=== PATIENT | male | born 1955 | race Caucasian/White ===

== ENCOUNTER 2016-06-10 00:36 | Inpatient (IN) | payer MEDICARE ==
[~2016-06-10 00:36] MED LIST: ACCUPRIL5 M1 PO; ASPIRIN EC325 M1 PO; LOVASTATIN40 M2 PO; NORCO 5-325 TA1 EACH PO; OMEPRAZOLE20 M3 PO; TENORMIN50 M1 PO
[2016-06-10 04:47] LABS: BASO % 0.1 % (0-2); EOS % 0.1 % (0-7); HGB-HEMOGLOBIN 11.4 gm/dl (13.5-17.0); IMMATURE GRANULOCYTES ABSOLUTE 0.11 tho/cmm (0-0.03); IMMATURE GRANULOCYTES PERCENT 0.6 % (0-0.3); LYMPH % 11.8 % (20-45); MCH (MEAN CORPUSCULAR HGB) 28.4 pg (28.0-32.0); MCHC MEAN CORPUSCULAR HGB CONC 33.5 % (32.0-36.0); MCV (MEAN CELL VOLUME) 84.6 fl (82.0-96.0); MONO % 7.2 % (0-12); MONOCYTE ABSOLUTE COUNT 1.2 tho/cmm (0.0-1.2); NEUTROPHIL ABSOLUTE COUNT 13.8 tho/cmm (1.6-8.0); NEUTROPHIL-AUTOMATED 13.8 tho/cmm (1.6-8.0); NEUTROPHILS % 80.2 % (40-80); PLATELET COUNT 434 tho/cmm (150-450); RED BLOOD COUNT 4.02 mil/cmm (4.40-5.70); WHITE BLOOD COUNT 17.2 tho/cmm (4.0-10.0)
[2016-06-10 05:24] LABS: ANION GAP 15 mmol/L (0-20); BLOOD UREA NITROGEN 13 mg/dl (6-24); CALCIUM 7.3 mg/dl (8.5-10.5); CARBON DIOXIDE-VENOUS 21 mmol/L (22-32); CHLORIDE 106 mmol/l (96-110); CREATININE 1.02 mg/dl (0.60-1.30); GLUCOSE 117 mg/dL (70-110); MAGNESIUM 1.2 mg/dl (1.3-2.6); POTASSIUM 3.5 mmol/L (3.7-5.1); SODIUM 138 mmol/L (135-145); eGFR VALUE FOR BLACK >90 mL/Min
[2016-06-11 00:59] LABS: INR 1.5 INR (0.9-1.1); PROTHROMBIN TIME 17.3 SECONDS (9.0-13.6)
[2016-06-11 01:00] LABS: URINE APPEARANCE CLEAR; URINE BILIRUBIN NEGATIVE (NEG); URINE BLOOD MODERATE (NEG); URINE COLOR YELLOW; URINE GLUCOSE (UA) NEGATIVE (NEG); URINE KETONE NEGATIVE (NEG); URINE LEUKOCYTE ESTERASE NEGATIVE (NEG); URINE NITRITE NEGATIVE (NEG); URINE PROTEIN MODERATE (NEG)
[2016-06-11 01:04] LABS: URINE AMORPHOUS 1+
[2016-06-11 01:05] LABS: URINE OTHER VOLUME 3 ML
[2016-06-11 01:21] LABS: PROCALCITONIN 1.21 ng/ml (0.05-0.09)
[2016-06-11 06:16] LABS: BASO % 0.2 % (0-2); EOS % 0.2 % (0-7); HCT-HEMATOCRIT 30.3 % (36.0-53.5); HGB-HEMOGLOBIN 10.2 gm/dl (13.5-17.0); IMMATURE GRANULOCYTES ABSOLUTE 0.07 tho/cmm (0-0.03); IMMATURE GRANULOCYTES PERCENT 0.5 % (0-0.3); LYMPH % 17.2 % (20-45); LYMPH ABSOLUTE COUNT 2.3 tho/cmm (0.8-4.5); MCH (MEAN CORPUSCULAR HGB) 28.4 pg (28.0-32.0); MCHC MEAN CORPUSCULAR HGB CONC 33.7 % (32.0-36.0); MCV (MEAN CELL VOLUME) 84.4 fl (82.0-96.0); MONO % 5.7 % (0-12); MONOCYTE ABSOLUTE COUNT 0.8 tho/cmm (0.0-1.2); NEUTROPHIL ABSOLUTE COUNT 10.1 tho/cmm (1.6-8.0); NEUTROPHIL-AUTOMATED 10.1 tho/cmm (1.6-8.0); NEUTROPHILS % 76.2 % (40-80); PLATELET COUNT 420 tho/cmm (150-450); RED BLOOD COUNT 3.59 mil/cmm (4.40-5.70); RED CELL DISTRIBUTION WIDTH 14.6 % (12.4-16.4); WHITE BLOOD COUNT 13.2 tho/cmm (4.0-10.0)
[2016-06-11 06:31] LABS: ANION GAP 12 mmol/L (0-20); BLOOD UREA NITROGEN 11 mg/dl (6-24); CALCIUM 6.9 mg/dl (8.5-10.5); CARBON DIOXIDE-VENOUS 22 mmol/L (22-32); CHLORIDE 109 mmol/l (96-110); GLUCOSE 92 mg/dL (70-110); POTASSIUM 3.1 mmol/L (3.7-5.1); SODIUM 140 mmol/L (135-145); eGFR VALUE FOR BLACK >90 mL/Min
[2016-06-12 04:38] LABS: BASO % 0.1 % (0-2); EOS % 1.5 % (0-7); EOSINOPHIL ABSOLUTE COUNT 0.2 tho/cmm (0.0-0.7); HCT-HEMATOCRIT 29.9 % (36.0-53.5); HGB-HEMOGLOBIN 9.9 gm/dl (13.5-17.0); IMMATURE GRANULOCYTES ABSOLUTE 0.15 tho/cmm (0-0.03); IMMATURE GRANULOCYTES PERCENT 1.1 % (0-0.3); LYMPH % 15.3 % (20-45); LYMPH ABSOLUTE COUNT 2.1 tho/cmm (0.8-4.5); MCH (MEAN CORPUSCULAR HGB) 28.2 pg (28.0-32.0); MCHC MEAN CORPUSCULAR HGB CONC 33.1 % (32.0-36.0); MCV (MEAN CELL VOLUME) 85.2 fl (82.0-96.0); MONO % 6.5 % (0-12); MONOCYTE ABSOLUTE COUNT 0.9 tho/cmm (0.0-1.2); NEUTROPHIL ABSOLUTE COUNT 10.2 tho/cmm (1.6-8.0); NEUTROPHIL-AUTOMATED 10.2 tho/cmm (1.6-8.0); NEUTROPHILS % 75.5 % (40-80); PLATELET COUNT 410 tho/cmm (150-450); RED BLOOD COUNT 3.51 mil/cmm (4.40-5.70); RED CELL DISTRIBUTION WIDTH 14.8 % (12.4-16.4); WHITE BLOOD COUNT 13.6 tho/cmm (4.0-10.0)
[2016-06-12 04:51] LABS: ANION GAP 12 mmol/L (0-20); BLOOD UREA NITROGEN 14 mg/dl (6-24); CALCIUM 7.4 mg/dl (8.5-10.5); CARBON DIOXIDE-VENOUS 22 mmol/L (22-32); CHLORIDE 105 mmol/l (96-110); CREATININE 0.93 mg/dl (0.60-1.30); MAGNESIUM 1.8 mg/dl (1.3-2.6); POTASSIUM 3.2 mmol/L (3.7-5.1); SODIUM 136 mmol/L (135-145); eGFR VALUE FOR BLACK >90 mL/Min
[2016-06-12 04:57] LABS: GLUCOSE 69 mg/dL (70-110)
[2016-06-13 05:47] LABS: BASO % 0.3 % (0-2); EOS % 1.4 % (0-7); EOSINOPHIL ABSOLUTE COUNT 0.2 tho/cmm (0.0-0.7); HCT-HEMATOCRIT 29.9 % (36.0-53.5); IMMATURE GRANULOCYTES ABSOLUTE 0.19 tho/cmm (0-0.03); IMMATURE GRANULOCYTES PERCENT 1.7 % (0-0.3); LYMPH % 21.7 % (20-45); LYMPH ABSOLUTE COUNT 2.4 tho/cmm (0.8-4.5); MCH (MEAN CORPUSCULAR HGB) 28.4 pg (28.0-32.0); MCHC MEAN CORPUSCULAR HGB CONC 33.4 % (32.0-36.0); MCV (MEAN CELL VOLUME) 84.9 fl (82.0-96.0); MEAN PLATELET VOLUME 8.8 cmc (9.4-12.4); MONO % 6.9 % (0-12); MONOCYTE ABSOLUTE COUNT 0.8 tho/cmm (0.0-1.2); NEUTROPHIL ABSOLUTE COUNT 7.6 tho/cmm (1.6-8.0); NEUTROPHIL-AUTOMATED 7.6 tho/cmm (1.6-8.0); PLATELET COUNT 498 tho/cmm (150-450); RED BLOOD COUNT 3.52 mil/cmm (4.40-5.70); RED CELL DISTRIBUTION WIDTH 15.1 % (12.4-16.4); WHITE BLOOD COUNT 11.1 tho/cmm (4.0-10.0)
[2016-06-13 06:04] LABS: ANION GAP 14 mmol/L (0-20); BLOOD UREA NITROGEN 12 mg/dl (6-24); CALCIUM 7.6 mg/dl (8.5-10.5); CARBON DIOXIDE-VENOUS 18 mmol/L (22-32); CHLORIDE 108 mmol/l (96-110); CREATININE 0.86 mg/dl (0.60-1.30); POTASSIUM 3.4 mmol/L (3.7-5.1); SODIUM 137 mmol/L (135-145); eGFR VALUE FOR BLACK >90 mL/Min
[2016-06-13 06:05] LABS: GLUCOSE 63 mg/dL (70-110)
--- NOTE | 2016-06-13 21:59 | NUR ---
VN ROUNDING-DID NOT ROUND PATIENT IS SLEEPING IN CHAIR.
[2016-06-14 05:35] LABS: BASO % 0.6 % (0-2); BASO ABSOLUTE COUNT 0.1 tho/cmm (0.0-0.2); EOS % 1.4 % (0-7); EOSINOPHIL ABSOLUTE COUNT 0.1 tho/cmm (0.0-0.7); HCT-HEMATOCRIT 30.2 % (36.0-53.5); HGB-HEMOGLOBIN 9.9 gm/dl (13.5-17.0); IMMATURE GRANULOCYTES ABSOLUTE 0.37 tho/cmm (0-0.03); IMMATURE GRANULOCYTES PERCENT 3.9 % (0-0.3); LYMPH % 28.9 % (20-45); LYMPH ABSOLUTE COUNT 2.8 tho/cmm (0.8-4.5); MCHC MEAN CORPUSCULAR HGB CONC 32.8 % (32.0-36.0); MCV (MEAN CELL VOLUME) 85.3 fl (82.0-96.0); MEAN PLATELET VOLUME 8.6 cmc (9.4-12.4); MONO % 8.9 % (0-12); MONOCYTE ABSOLUTE COUNT 0.9 tho/cmm (0.0-1.2); NEUTROPHIL ABSOLUTE COUNT 5.3 tho/cmm (1.6-8.0); NEUTROPHIL-AUTOMATED 5.3 tho/cmm (1.6-8.0); NEUTROPHILS % 56.3 % (40-80); PLATELET COUNT 502 tho/cmm (150-450); RED BLOOD COUNT 3.54 mil/cmm (4.40-5.70); RED CELL DISTRIBUTION WIDTH 15.1 % (12.4-16.4); WHITE BLOOD COUNT 9.5 tho/cmm (4.0-10.0)
[2016-06-14 05:51] LABS: ANION GAP 14 mmol/L (0-20); BLOOD UREA NITROGEN 8 mg/dl (6-24); CALCIUM 7.6 mg/dl (8.5-10.5); CARBON DIOXIDE-VENOUS 21 mmol/L (22-32); CHLORIDE 108 mmol/l (96-110); CREATININE 0.79 mg/dl (0.60-1.30); GLUCOSE 76 mg/dL (70-110); POTASSIUM 3.4 mmol/L (3.7-5.1); SODIUM 140 mmol/L (135-145); eGFR VALUE FOR BLACK >90 mL/Min
--- NOTE | 2016-06-14 11:33 | NUR ---
VIRTUAL CARE NOTE: PT SITTING ON CHAIR HAVING LUNCH, STATES DOING GOOD, DENIES ANY CONCERNS. PLAN OF CARES REINFORCED, ENCOURAGE AMBULATION. WILL CHECK WITH SURGEON TO ADVANCE DIET TODAY, PT TOLERATES CLEAR LIQUID WELL.
--- NOTE | 2016-06-14 14:36 | NUR ---
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
--- NOTE | 2016-06-14 20:51 | NUR ---
BRANDEN ROUNDING-PATIENT SITTING UP IN CHAIR STATING PAIN IS CONTROLLED MOST OF THE TIME, HE IS TRYING TO CUT BACK ON USING MANY PAIN PILLS BUT THE STAFF IS DOING WHAT THEY NEED TO HELP HIM. PATIENT STATES HE IS FEELING BETTER AND TRYING TO GET THE SWELLING DOWN IN HIS LEGS. I ASKED IF THE WOUND VAC WAS STILL BEEPING AND HE SAID NO THAT COLIN HAD COME IN AND FIXED IT AND HE THINKS SHE IS AN AWESOME NURSE. NO FURTHER QUESTIONS OR CONCERNS AT THIS TIME
[2016-06-15 06:10] LABS: HCT-HEMATOCRIT 29.1 % (36.0-53.5); HGB-HEMOGLOBIN 9.6 gm/dl (13.5-17.0); MCH (MEAN CORPUSCULAR HGB) 28.3 pg (28.0-32.0); MCV (MEAN CELL VOLUME) 85.8 fl (82.0-96.0); MEAN PLATELET VOLUME 8.6 cmc (9.4-12.4); NEUTROPHIL-AUTOMATED 5.2 tho/cmm (1.6-8.0); PLATELET COUNT 483 tho/cmm (150-450); RED BLOOD COUNT 3.39 mil/cmm (4.40-5.70); RED CELL DISTRIBUTION WIDTH 15.3 % (12.4-16.4); WHITE BLOOD COUNT 9.7 tho/cmm (4.0-10.0)
[2016-06-15 06:17] LABS: BASO % 0.4 % (0-2); EOS % 1.7 % (0-7); EOSINOPHIL ABSOLUTE COUNT 0.2 tho/cmm (0.0-0.7); IMMATURE GRANULOCYTES PERCENT 5.1 % (0-0.3); LYMPH % 30.5 % (20-45); MONOCYTE ABSOLUTE COUNT 0.9 tho/cmm (0.0-1.2); NEUTROPHIL ABSOLUTE COUNT 5.2 tho/cmm (1.6-8.0); NEUTROPHILS % 53.3 % (40-80)
[2016-06-15 06:23] LABS: ANION GAP 12 mmol/L (0-20); BLOOD UREA NITROGEN 5 mg/dl (6-24); CALCIUM 7.7 mg/dl (8.5-10.5); CARBON DIOXIDE-VENOUS 25 mmol/L (22-32); CHLORIDE 107 mmol/l (96-110); CREATININE 0.78 mg/dl (0.60-1.30); GLUCOSE 108 mg/dL (70-110); POTASSIUM 3.4 mmol/L (3.7-5.1); SODIUM 141 mmol/L (135-145); eGFR VALUE FOR BLACK >90 mL/Min
[2016-06-16 06:47] LABS: ANION GAP 15 mmol/L (0-20); BLOOD UREA NITROGEN 7 mg/dl (6-24); CALCIUM 7.7 mg/dl (8.5-10.5); CARBON DIOXIDE-VENOUS 25 mmol/L (22-32); CHLORIDE 105 mmol/l (96-110); CREATININE 0.91 mg/dl (0.60-1.30); GLUCOSE 105 mg/dL (70-110); POTASSIUM 3.7 mmol/L (3.7-5.1); SODIUM 141 mmol/L (135-145); eGFR VALUE FOR BLACK >90 mL/Min
[2016-06-17 05:59] LABS: HCT-HEMATOCRIT 31.5 % (36.0-53.5); HGB-HEMOGLOBIN 10.1 gm/dl (13.5-17.0); MCHC MEAN CORPUSCULAR HGB CONC 32.1 % (32.0-36.0); MCV (MEAN CELL VOLUME) 87.3 fl (82.0-96.0); MEAN PLATELET VOLUME 8.6 cmc (9.4-12.4); NEUTROPHIL-AUTOMATED 4.5 tho/cmm (1.6-8.0); PLATELET COUNT 453 tho/cmm (150-450); RED BLOOD COUNT 3.61 mil/cmm (4.40-5.70); RED CELL DISTRIBUTION WIDTH 15.4 % (12.4-16.4); WHITE BLOOD COUNT 9.4 tho/cmm (4.0-10.0)
[2016-06-17 06:17] LABS: ANION GAP 12 mmol/L (0-20); BLOOD UREA NITROGEN 11 mg/dl (6-24); CALCIUM 8.1 mg/dl (8.5-10.5); CARBON DIOXIDE-VENOUS 28 mmol/L (22-32); CHLORIDE 104 mmol/l (96-110); GLUCOSE 88 mg/dL (70-110); POTASSIUM 4.1 mmol/L (3.7-5.1); SODIUM 140 mmol/L (135-145)
[2016-06-17 06:18] LABS: CREATININE 1.05 mg/dl (0.60-1.30); eGFR VALUE FOR BLACK 87 mL/Min
[2016-06-17 09:33] LABS: BAND % 6 % (0-20); BAND ABSOLUTE COUNT 0.6 tho/cmm (0-2.0); BASOPHIL % 1 % (0-2); BASOPHIL ABSOLUTE COUNT 0.1 tho/cmm (0.0-0.2); EOSINOPHIL % 1 % (0-7)
[2016-06-18] MEDS ORDERED: DIFLUCAN100 M1 PO (11:21)
[2016-06-18] MEDS ORDERED: LEVAQUIN750 M1 PO (11:26)
[2016-06-18] MEDS ORDERED: FLAGYL500 M1 PO (11:27)
--- NOTE | 2016-06-18 12:26 | NUR ---
VN DISCHARGE TEACHING-EDUCATED PATIENT ON HIS DISCHARGE INSTRUCTIONS, BURN OUTPT VISITS FOR THE WOUND VAC CHANGES,FOLLOWUP APPT AND NEW MEDICATIONS. PATIENT UNDERSTOOD EVERYTHING AND HAD NO FURTHER QUESTIONS OR CONCERNS.
== END 2016-06-18 16:03 | DRG 856 ==
LOC: PCUB 00:36 → PACU 17:48 → PCUB 18:40 → 5WD 06-12 18:40
PROVIDERS: Family Medicine; Hospitalist; Internal Medicine; Surgery; ADMIT Hospitalist
PROC: 0WPF0JZ Removal of Synthetic Substitute from Abdominal Wall, Open Approach (ICD-10-PCS; principal; 2016-06-10)
PROC: 0DQ80ZZ Repair Small Intestine, Open Approach (ICD-10-PCS; 2016-06-10)
PROC: 0WUF0JZ Supplement Abdominal Wall with Synthetic Substitute, Open Approach (ICD-10-PCS; 2016-06-10)
PROC: 0JB80ZZ Excision of Abdomen Subcutaneous Tissue and Fascia, Open Approach (ICD-10-PCS; 2016-06-10)
DX: T81.4XXA Infection following a procedure, initial encounter (principal); R65.20 Severe sepsis without septic shock; K63.1 Perforation of intestine (nontraumatic); T85.79XA Infection and inflammatory reaction due to other internal prosthetic devices, implants and grafts, initial encounter; E87.1 Hypo-osmolality and hyponatremia; D62 Acute posthemorrhagic anemia; Z68.41 Body mass index [BMI] 40.0-44.9, adult; L02.211 Cutaneous abscess of abdominal wall; L03.311 Cellulitis of abdominal wall; E66.01 Morbid (severe) obesity due to excess calories; E87.70 Fluid overload, unspecified; I73.9 Peripheral vascular disease, unspecified; I25.10 Atherosclerotic heart disease of native coronary artery without angina pectoris; D47.3 Essential (hemorrhagic) thrombocythemia; I10 Essential (primary) hypertension; E78.5 Hyperlipidemia, unspecified; I25.2 Old myocardial infarction; Z87.891 Personal history of nicotine dependence; E87.6 Hypokalemia; R73.9 Hyperglycemia, unspecified; Z95.5 Presence of coronary angioplasty implant and graft
CPT/HCPCS: C1751; C9113; J0131; J1450; J1650; J1940; J2175; J2270; J2543; J3370; J3475; J3480; J7030; J7050; Q9967

== ENCOUNTER 2016-06-23 13:00 | Inpatient (IN) | payer MEDICARE ==
[~2016-06-23 13:00] MED LIST changes: +DIFLUCAN100 M1 PO; +FLAGYL500 M1 PO; +LEVAQUIN750 M1 PO
[2016-06-23 14:16] LABS: BASO % 0.2 % (0-2); EOS % 0.5 % (0-7); EOSINOPHIL ABSOLUTE COUNT 0.1 tho/cmm (0.0-0.7); HCT-HEMATOCRIT 35.3 % (36.0-53.5); HGB-HEMOGLOBIN 11.6 gm/dl (13.5-17.0); IMMATURE GRANULOCYTES ABSOLUTE 0.06 tho/cmm (0-0.03); IMMATURE GRANULOCYTES PERCENT 0.4 % (0-0.3); LYMPH % 24.9 % (20-45); LYMPH ABSOLUTE COUNT 3.6 tho/cmm (0.8-4.5); MCH (MEAN CORPUSCULAR HGB) 28.6 pg (28.0-32.0); MCHC MEAN CORPUSCULAR HGB CONC 32.9 % (32.0-36.0); MCV (MEAN CELL VOLUME) 86.9 fl (82.0-96.0); MEAN PLATELET VOLUME 8.8 cmc (9.4-12.4); MONOCYTE ABSOLUTE COUNT 1.8 tho/cmm (0.0-1.2); PLATELET COUNT 414 tho/cmm (150-450); RED BLOOD COUNT 4.06 mil/cmm (4.40-5.70); RED CELL DISTRIBUTION WIDTH 15.3 % (12.4-16.4); WHITE BLOOD COUNT 14.6 tho/cmm (4.0-10.0)
[2016-06-23 14:29] LABS: ANION GAP 13 mmol/L (0-20); BLOOD UREA NITROGEN 12 mg/dl (6-24); CALCIUM 8.3 mg/dl (8.5-10.5); CARBON DIOXIDE-VENOUS 26 mmol/L (22-32); CHLORIDE 107 mmol/l (96-110); CREATININE 1.03 mg/dl (0.60-1.30); GLUCOSE 101 mg/dL (70-110); SODIUM 142 mmol/L (135-145); eGFR VALUE FOR BLACK 89 mL/Min
[2016-06-23 19:31] LABS: INR 1.2 INR (0.9-1.1); PROTHROMBIN TIME 14.4 SECONDS (9.0-13.6)
[2016-06-24 05:14] LABS: BASO % 0.1 % (0-2); EOS % 0.7 % (0-7); EOSINOPHIL ABSOLUTE COUNT 0.1 tho/cmm (0.0-0.7); HGB-HEMOGLOBIN 10.6 gm/dl (13.5-17.0); IMMATURE GRANULOCYTES ABSOLUTE 0.05 tho/cmm (0-0.03); IMMATURE GRANULOCYTES PERCENT 0.5 % (0-0.3); LYMPH % 29.7 % (20-45); LYMPH ABSOLUTE COUNT 3.2 tho/cmm (0.8-4.5); MCHC MEAN CORPUSCULAR HGB CONC 32.1 % (32.0-36.0); MCV (MEAN CELL VOLUME) 87.1 fl (82.0-96.0); MONO % 12.8 % (0-12); MONOCYTE ABSOLUTE COUNT 1.4 tho/cmm (0.0-1.2); NEUTROPHILS % 56.2 % (40-80); PLATELET COUNT 401 tho/cmm (150-450); RED BLOOD COUNT 3.79 mil/cmm (4.40-5.70); RED CELL DISTRIBUTION WIDTH 15.4 % (12.4-16.4); WHITE BLOOD COUNT 10.7 tho/cmm (4.0-10.0)
[2016-06-24 05:35] LABS: ALB/GLOB RATIO 0.5 (0.8-2.0); ALBUMIN 2.1 g/dl (3.5-5.0); ALKALINE PHOSPHATASE 53 U/L (33-138); ALT/SGPT 16 U/L (12-78); ANION GAP 12 mmol/L (0-20); AST/SGOT 20 U/L (10-40); BILIRUBIN,TOTAL 0.3 mg/dl (0.0-1.5); BLOOD UREA NITROGEN 8 mg/dl (6-24); CALCIUM 8.3 mg/dl (8.5-10.5); CARBON DIOXIDE-VENOUS 27 mmol/L (22-32); CHLORIDE 109 mmol/l (96-110); CREATININE 0.89 mg/dl (0.60-1.30); GLUCOSE 89 mg/dL (70-110); POTASSIUM 3.9 mmol/L (3.7-5.1); SODIUM 144 mmol/L (135-145); eGFR VALUE FOR BLACK >90 mL/Min
[2016-06-24 05:36] LABS: PREALBUMIN 17.3 mg/dl (20.0-40.0)
[2016-06-24 21:52] LABS: HGB-HEMOGLOBIN 10.7 gm/dl (13.5-17.0); PLATELET COUNT 365 tho/cmm (150-450)
[2016-06-25 06:21] LABS: PHOSPHOROUS 3.6 mg/dl (2.5-4.9)
[2016-06-27 05:22] LABS: HGB-HEMOGLOBIN 10.9 gm/dl (13.5-17.0)
--- NOTE | 2016-06-27 20:49 | NUR ---
VIRTUAL CARE NOTE: PT. UP IN THE CHAIR, STATES IS SORE, ALTHOUGH PAIN MEDICATION ISN'T DUE YET, ALTHOUGH PAIN IS TOLERABLE FOR NOW. EDUCATION REVIEWED THE REASON'S WHY PT. HAS BLOOD SUGARS ON AND WHAT TPN AND LIPIDS ARE. DENIES FURTHER QUESTIONS OR NEEDS AT THIS TIME. INSTRUCTED TO CALL FOR FURTHER NEEDS AND ENCOURAGED TO AMBULATE MORE, STATES HAS ONLY WALKED X2 TODAY. STATES VERBAL AGREEMENT.
--- NOTE | 2016-06-27 23:36 | NUR ---
06/27/16: 1999 ASSESSMENT TIMED 1831 WAS INCORRECTLY CHARTED T-1 FOR 06/26/16. ASSESSMENT WAS DONE TONIGHT.
[2016-06-29 06:03] LABS: BASO % 0.3 % (0-2); EOSINOPHIL ABSOLUTE COUNT 0.1 tho/cmm (0.0-0.7); HCT-HEMATOCRIT 33.5 % (36.0-53.5); HGB-HEMOGLOBIN 10.7 gm/dl (13.5-17.0); IMMATURE GRANULOCYTES ABSOLUTE 0.02 tho/cmm (0-0.03); IMMATURE GRANULOCYTES PERCENT 0.2 % (0-0.3); LYMPH % 33.2 % (20-45); LYMPH ABSOLUTE COUNT 3.3 tho/cmm (0.8-4.5); MCH (MEAN CORPUSCULAR HGB) 27.3 pg (28.0-32.0); MCHC MEAN CORPUSCULAR HGB CONC 31.9 % (32.0-36.0); MCV (MEAN CELL VOLUME) 85.5 fl (82.0-96.0); MEAN PLATELET VOLUME 8.9 cmc (9.4-12.4); MONO % 12.1 % (0-12); MONOCYTE ABSOLUTE COUNT 1.2 tho/cmm (0.0-1.2); NEUTROPHIL ABSOLUTE COUNT 5.2 tho/cmm (1.6-8.0); NEUTROPHIL-AUTOMATED 5.2 tho/cmm (1.6-8.0); NEUTROPHILS % 53.2 % (40-80); PLATELET COUNT 306 tho/cmm (150-450); RED BLOOD COUNT 3.92 mil/cmm (4.40-5.70); RED CELL DISTRIBUTION WIDTH 14.4 % (12.4-16.4); WHITE BLOOD COUNT 9.8 tho/cmm (4.0-10.0)
[2016-06-29 06:24] LABS: ALB/GLOB RATIO 0.5 (0.8-2.0); ALBUMIN 2.4 g/dl (3.5-5.0); ALKALINE PHOSPHATASE 61 U/L (33-138); ALT/SGPT 14 U/L (12-78); ANION GAP 11 mmol/L (0-20); AST/SGOT 16 U/L (10-40); BILIRUBIN,TOTAL 0.3 mg/dl (0.0-1.5); BLOOD UREA NITROGEN 22 mg/dl (6-24); CALCIUM 8.3 mg/dl (8.5-10.5); CARBON DIOXIDE-VENOUS 24 mmol/L (22-32); CHLORIDE 106 mmol/l (96-110); CREATININE 0.79 mg/dl (0.60-1.30); GLUCOSE 102 mg/dL (70-110); PHOSPHOROUS 3.5 mg/dl (2.5-4.9); POTASSIUM 3.9 mmol/L (3.7-5.1); PREALBUMIN 17.3 mg/dl (20.0-40.0); SODIUM 137 mmol/L (135-145); eGFR VALUE FOR BLACK >90 mL/Min
--- NOTE | 2016-06-30 14:24 | NUR ---
VIRTUAL CARE NOTE: STATES PAIN IS NOT GETTING BETTER FAST HE THOUGHT IT WOULD. REPORTS A LOT OF DRAINAGE FROM INCISION AND DRSG IS CHANGED FREQUENTLY. POSSIBLY HOME WITH TPN AND HE'S NOT REAL SURE ABOUT THAT. NO OTHER CONCERNS Jonnathan HARRIS RN
[2016-07-01 05:48] LABS: PLATELET COUNT 340 tho/cmm (150-450)
[2016-07-02 06:28] LABS: MAGNESIUM 2.1 mg/dl (1.3-2.6); PHOSPHOROUS 3.2 mg/dl (2.5-4.9)
--- NOTE | 2016-07-02 17:41 | NUR ---
VIRTUAL CARE NOTE: PT SITTING ON CHAIR STATES DOING OK, PT SEEMS FEELING LITTLE DOWN. INCISION STILL RED YET AND PT FEELING MORE PAIN TODAY. DRESSING HAS BEEN CHANGED MULTIPLE TIMES THROUGH OUT THE DAY. PER PT SAID DON'T KNOW WHAT THE DOCTOR WILL DECIDE TO DO YET. SUPPORT PROVIDED, PLAN OF CARE REVIEWED. PT DENIES ANY NEEDS AT THIS TIME.
[2016-07-03 05:43] LABS: HGB-HEMOGLOBIN 11.6 gm/dl (13.5-17.0); PLATELET COUNT 385 tho/cmm (150-450)
--- NOTE | 2016-07-04 13:35 | NUR ---
virtual care note: checked on pt at this time. he is resting, sitting up in his scott. encouraged him to use his I.S. as he states he hasn't been using it as much as he should. given information and instruction re: importance of CDB and good lung hygiene. he is agreeable to this information. states he also needs to get up to go for a "longer walk" this shift. will continue to monitor.
[2016-07-05 05:51] LABS: HGB-HEMOGLOBIN 10.7 gm/dl (13.5-17.0); PLATELET COUNT 394 tho/cmm (150-450)
--- NOTE | 2016-07-05 21:27 | NUR ---
VN/LEADER ROUNDING-PATIENT SITTING UP IN CHAIR WITH SISTER AT CHAIRSIDE. PATIENT STATES FOR MOST OF THE TIME PAIN IS STAYING UNDER CONTROL AND RARELY HAS TO USE THE CALL LIGHT. WHEN HE DOES IT IS ANSWERED TIMELY. PATIENT HAD NO CONCERNS OR QUESTIONS,EXCEPT WHEN ASKED ABOUT WHAT WE COULD DO TO IMPROVE HIS STAY HERE TO MAKE IT EXCELLENT AND IT IS THAT HE DOES NOT LIKE OUR BEDS. SO I TOLD HIM I WOULD TRY AND GET HIM ANOTHER ONE. HE WAS AGREEABLE BUT SAID IT WAS NOT IMPERATIVE.
[2016-07-06 06:55] LABS: BASO % 0.2 % (0-2); EOS % 2.9 % (0-7); EOSINOPHIL ABSOLUTE COUNT 0.3 tho/cmm (0.0-0.7); HCT-HEMATOCRIT 33.1 % (36.0-53.5); HGB-HEMOGLOBIN 10.5 gm/dl (13.5-17.0); LYMPH % 37.7 % (20-45); LYMPH ABSOLUTE COUNT 3.5 tho/cmm (0.8-4.5); MCH (MEAN CORPUSCULAR HGB) 27.1 pg (28.0-32.0); MCHC MEAN CORPUSCULAR HGB CONC 31.7 % (32.0-36.0); MCV (MEAN CELL VOLUME) 85.5 fl (82.0-96.0); MEAN PLATELET VOLUME 9.6 cmc (9.4-12.4); MONO % 11.2 % (0-12); NEUTROPHIL ABSOLUTE COUNT 4.5 tho/cmm (1.6-8.0); NEUTROPHIL-AUTOMATED 4.5 tho/cmm (1.6-8.0); PLATELET COUNT 418 tho/cmm (150-450); RED BLOOD COUNT 3.87 mil/cmm (4.40-5.70); RED CELL DISTRIBUTION WIDTH 14.1 % (12.4-16.4); WHITE BLOOD COUNT 9.3 tho/cmm (4.0-10.0)
[2016-07-06 06:58] LABS: MAGNESIUM 1.9 mg/dl (1.3-2.6); PHOSPHOROUS 3.5 mg/dl (2.5-4.9); PREALBUMIN 19.7 mg/dl (20.0-40.0)
--- NOTE | 2016-07-06 16:40 | NUR ---
VIRTUAL CARE NOTE: PT SITTING ON CHAIR, STATES FEELING GOOD. DENIES ANY NEEDS OR CONCERNS AT THIS TIME. PLAN OF CARE DISCUSSED WITH PT. NO FURTHER QUESTONS.
[2016-07-07 05:46] LABS: HGB-HEMOGLOBIN 10.3 gm/dl (13.5-17.0); PLATELET COUNT 354 tho/cmm (150-450)
--- NOTE | 2016-07-07 22:34 | NUR ---
VIRTUAL CARE NOTE: ASSESSMENT DEFERRED. PT. SLEEPING.
[2016-07-08 06:42] LABS: ANION GAP 12 mmol/L (0-20); BLOOD UREA NITROGEN 25 mg/dl (6-24); CALCIUM 8.4 mg/dl (8.5-10.5); CARBON DIOXIDE-VENOUS 25 mmol/L (22-32); CHLORIDE 106 mmol/l (96-110); CREATININE 0.81 mg/dl (0.60-1.30); GLUCOSE 117 mg/dL (70-110); MAGNESIUM 1.9 mg/dl (1.3-2.6); PHOSPHOROUS 3.7 mg/dl (2.5-4.9); POTASSIUM 3.8 mmol/L (3.7-5.1); SODIUM 139 mmol/L (135-145); eGFR VALUE FOR BLACK >90 mL/Min
--- NOTE | 2016-07-08 21:24 | NUR ---
VIRTAL CARE NOTE: REVIEWED PLAN OF CARE WITH PT. PT DENIES ANY NEW QUESTIONS OR CONCERNS. SAID HE IS JUST TAKING THINGS DAY BY DAY BUT FEELS THINGS ARE IMPROVING. DOING OK. ENCOURAGED FALL PRECAUTIONS AND NOTIFY STAFF FOR NEEDS. PT V/U. WILL CONTINUE WITH CHART REVIEW.
[2016-07-09 07:25] LABS: HGB-HEMOGLOBIN 11.5 gm/dl (13.5-17.0); PLATELET COUNT 383 tho/cmm (150-450)
[2016-07-09 07:33] LABS: PHOSPHOROUS 3.8 mg/dl (2.5-4.9)
[2016-07-10 05:23] LABS: BASO % 0.2 % (0-2); EOS % 3.2 % (0-7); EOSINOPHIL ABSOLUTE COUNT 0.3 tho/cmm (0.0-0.7); HCT-HEMATOCRIT 32.6 % (36.0-53.5); HGB-HEMOGLOBIN 10.6 gm/dl (13.5-17.0); IMMATURE GRANULOCYTES ABSOLUTE 0.08 tho/cmm (0-0.03); IMMATURE GRANULOCYTES PERCENT 0.7 % (0-0.3); LYMPH % 39.2 % (20-45); LYMPH ABSOLUTE COUNT 4.2 tho/cmm (0.8-4.5); MCH (MEAN CORPUSCULAR HGB) 27.3 pg (28.0-32.0); MCHC MEAN CORPUSCULAR HGB CONC 32.5 % (32.0-36.0); MEAN PLATELET VOLUME 9.2 cmc (9.4-12.4); MONOCYTE ABSOLUTE COUNT 0.9 tho/cmm (0.0-1.2); NEUTROPHIL ABSOLUTE COUNT 5.2 tho/cmm (1.6-8.0); NEUTROPHIL-AUTOMATED 5.2 tho/cmm (1.6-8.0); NEUTROPHILS % 48.7 % (40-80); PLATELET COUNT 325 tho/cmm (150-450); RED BLOOD COUNT 3.88 mil/cmm (4.40-5.70); RED CELL DISTRIBUTION WIDTH 14.3 % (12.4-16.4); WHITE BLOOD COUNT 10.7 tho/cmm (4.0-10.0)
--- NOTE | 2016-07-10 12:01 | NUR ---
BRANDEN ROUNDALDO NOTE-VISITED WITH PATIENT HE SET UP IN THE CHAIR. STATES HIS PAIN IS STAYING UNDER CONTROL EXCEPT FOR DRESSING CHANGES AND SOMETIMES THOSE ARE A LITTLE PAINFUL. PATIENT HAS STARTED ON REGULAR FOOD AT LUNCH SO WILL WAIT AND SEE IF THAT IMPACTS THE WOUND OUTPUT IT HAD IMPROVED A LOT FROM BEFORE. PATIENT HAS NO OTHER QUESTIONS OR CONCERNS AT THIS TIME JUST WAITING TO SEE. HE IS STILL RUNNING TPN. CHART REVEW DONE
--- NOTE | 2016-07-10 20:50 | NUR ---
VIRTUAL CARE NOTE: PT. UP IN THE CHAIR WITH SISTERS IN THE ROOM VISITING. STATES HAS TRIED SOME FOOD AND DID HAVE SOME LEAKING OUT OF HIS WOUND PRIOR. STATES THE TOLD HIM HE IS TO TAKE BITES AND SIPS HERE AND THERE SO WE CAN WATCH HOW THE WOUND DOES. REINFORCED AGREEMENT WITH PLAN OF CARE. DENIES FURTHER NEEDS AT THIS TIME, INSTRUCTED TO CALL OF FURTHER NEEDS. STATES VERBAL AGREEMENT.
[2016-07-11 06:38] LABS: HGB-HEMOGLOBIN 10.9 gm/dl (13.5-17.0); PLATELET COUNT 315 tho/cmm (150-450)
--- NOTE | 2016-07-11 15:58 | NUR ---
VIRTUAL CARE NOTE: PT RESTING ON BED, STATES FEELING THE SAME. NO NEEDS OR QUESTIONS AT THIS TIME.
[2016-07-13 05:24] LABS: HGB-HEMOGLOBIN 10.5 gm/dl (13.5-17.0); PLATELET COUNT 288 tho/cmm (150-450)
[2016-07-13 05:44] LABS: ALB/GLOB RATIO 0.5 (0.8-2.0); ALBUMIN 2.7 g/dl (3.5-5.0); ALKALINE PHOSPHATASE 60 U/L (33-138); ALT/SGPT 16 U/L (12-78); ANION GAP 14 mmol/L (0-20); AST/SGOT 19 U/L (10-40); BILIRUBIN,TOTAL 0.2 mg/dl (0.0-1.5); BLOOD UREA NITROGEN 27 mg/dl (6-24); CALCIUM 8.7 mg/dl (8.5-10.5); CARBON DIOXIDE-VENOUS 24 mmol/L (22-32); CHLORIDE 103 mmol/l (96-110); CREATININE 0.74 mg/dl (0.60-1.30); GLUCOSE 137 mg/dL (70-110); MAGNESIUM 1.9 mg/dl (1.3-2.6); PHOSPHOROUS 3.6 mg/dl (2.5-4.9); POTASSIUM 4.1 mmol/L (3.7-5.1); PREALBUMIN 18.9 mg/dl (20.0-40.0); SODIUM 137 mmol/L (135-145); eGFR VALUE FOR BLACK >90 mL/Min
[2016-07-14] MEDS ORDERED: NORCO 5-325 TA1 EACH PO (13:00)
== END 2016-07-14 18:40 | DRG 981 ==
LOC: 5WD 13:00 → PACU 20:39 → 5WD 22:05
PROVIDERS: ADMIT Surgery
PROC: 05HF33Z Insertion of Infusion Device into Left Cephalic Vein, Percutaneous Approach (ICD-10-PCS; principal; 2016-06-23)
PROC: 0JD80ZZ Extraction of Abdomen Subcutaneous Tissue and Fascia, Open Approach (ICD-10-PCS; 2016-06-23)
DX: K63.2 Fistula of intestine (principal); A41.9 Sepsis, unspecified organism; E87.1 Hypo-osmolality and hyponatremia; E66.01 Morbid (severe) obesity due to excess calories; L03.311 Cellulitis of abdominal wall; I10 Essential (primary) hypertension; E78.5 Hyperlipidemia, unspecified; I25.10 Atherosclerotic heart disease of native coronary artery without angina pectoris; I73.89 Other specified peripheral vascular diseases; K43.2 Incisional hernia without obstruction or gangrene; F17.210 Nicotine dependence, cigarettes, uncomplicated; R73.9 Hyperglycemia, unspecified; D64.9 Anemia, unspecified; Z95.5 Presence of coronary angioplasty implant and graft; I25.2 Old myocardial infarction
CPT/HCPCS: C1751; C9113; J0690; J1335; J1650; J2270; J2354; J2997; J3010; J7050